=== PATIENT | female | born 1975 | race Caucasian/White ===

== ENCOUNTER 2018-02-15 01:51 | Inpatient (IN) | payer OTHER ==
[~2018-02-15] VITALS: Ht 162.6 cm; Wt 68.0 kg
[~2018-02-15 01:51] MED LIST: ATIVAN0.5 M1 PO; FIBER500 MG PO; LAMICTAL100 M2 PO; LATUDA60 M1 PO; MELATONIN10 M2 PO; PARAGARD T 3801 EACH
[2018-02-15 10:43] LABS: ABSOLUTE BASOPHIL COUNT 0 /CUMM (0.0-0.2); ABSOLUTE EOSINOPHIL COUNT 0 /CUMM (0.0-0.7); ABSOLUTE GRANULOCYTE CT 5.3 /CUMM (1.4-6.5); ABSOLUTE LYMPH COUNT 0.7 /CUMM (1.2-3.4); ABSOLUTE MONOCYTE COUNT 0.4 /CUMM (0.10-0.60); BASOPHIL % 0.5 % (0.0-2.0); EOSINOPHIL % 0.6 % (0-5); GRANULOCYTE % 82.1 % (42.2-75.2); MEAN CORPUSCULAR HGB 30.3 PG (27.0-31.0); MEAN CORPUSCULAR HGB CONC 33.3 G/DL (33.0-37.0); MEAN CORPUSCULAR VOLUME 91.1 FL (81.0-99.0); PLATELET COUNT 268 /CUMM (130-400); RBC DISTRIBUTION WIDTH 13.5 % (11.5-14.5); RED BLOOD CELL CT 4.72 /CUMM (4.20-5.40); WHITE BLOOD CELL COUNT 6.4 /CUMM (4.8-10.8)
--- NOTE | 2018-02-15 15:39 | Operative Report ---
Operative/Inv Procedure Report Surgery Date: 02/15/18 Name of Procedure: 1. Robotic low anterior resection 2. Rigid sigmoidoscopy Pre-Operative Diagnosis: Complicated diverticulitis with history of perforation Post-Operative Diagnosis: Complicated diverticulitis with history of perforation Estimated Blood Loss: scant Surgeon/Lap Winding Machine Operator: Russ Vaughan Jr., DO Anesthesia: general endotracheal tube, block Monitors: Per routine Urine Output: None Drains: None Specimens: Rectosigmoid with stapler noted Complications: None Condition: Good Operative Indication: This is a 42-year-old healthy female I first met which presented to the hospital with severe abdominal pain secondary to perforated diverticulitis. She managed to recover from that that without surgery. Since that time she began having recurrent symptoms. After careful discussion in the office we decided to proceed with surgical resection. Operative/Procedure Note Note: The day before the operation the patient did a bowel prep at home including oral laxatives and oral antibiotics. The day of the procedure she drank 12 ounces of juice 3 hours prior to her scheduled surgery per the ERAS protocol. When she arrived at the hospital she received the ERAS premedications including: Entereg, Neurontin and Tylenol She was taken to the operating room placed in supine position on the operating room table. She underwent induction of general anesthesia placement of endotracheal tube. Next she had bilateral tap blocks performed by the anesthesia departmen. A Simpson catheter was placed. She was converted to lithotomy position with both arms were tucked and the abdomen was prepped and draped in usual fashion. We gained access to the abdominal cavity using a Veress needle technique. The Veress needle was inserted in the midclavicular line just subcostal on the left. The abdomen was insufflated to 15 mmHg and then the robotic ports were placed. The ports were placed in the line between the right lower quadrant and the left side of the xiphoid process. The ports were placed approximately 8 cm apart. #1, 2 and 3 ports were all 8 mm ports and the #4 port was a 12 mm stapler port. A right lower quadrant 8 mm port was also placed. Laparoscopic exploration of the abdominal cavity was performed patient had a very inflamed segment of distal sigmoid inflammation did involve the superior aspect of the rectum. The patient was placed and Trendelenburg right side down and the robot was docked. The rectosigmoid was grasped I incised the peritoneum at the lumbosacral promontory to the right of the rectosigmoid. I entered the posterior rectal avascular space and I took the space down to the mid rectum as I felt the anastomosis needed to be comfortably on the rectum so no inflamed tissue would be left. I worked medially to laterally incised with the iliac vessels and the left ureter. The right lateral stalk and then the left lateral stalk were taken down with vessel sealer to about the mid rectum. Next I skeletonized the inferior mesenteric vascular pedicle. The pedicle was skeletonized distal to the left colic artery and possibly leaving at least one of the sigmoid branches. Once skeletonized the vessels were divided with the robotic vessel sealing device. Next I took down the white line of Toldt all the way back to the proximal descending colon. I did not take the splenic flexure as I had adequate colon length for resection and anastomosis. Next I chose my distal site of transection. Once again I was in the upper third of the rectum. The mesorectum was cleared with a combination of electrocautery and robotic vessel sealing device. Once the rectal wall was completely opposed a robotic RADHA stapler was used to divide the bowel at this level. This was a blue 45 mm EEA stapler. Only one firing was required. The transected end of the colon was grasped with a locking grasper. The pneumoperitoneum was let down. A 4 cm Pfannenstiel incision was made approximately 2 cm above the pubic symphysis. Wound protector was placed through this incision and the bowel was easily extracted through the wound protector. I chose my proximal site of transection above the inflamed sigmoid on the very proximal sigmoid colon about the level junction with the descending colon. The mesentery was cleared here partly with electrocautery and larger bundles of tissue were ligated and divided with 2-0 Vicryl suture. I sharply divided the bowel and the open end was grasped without clamps. The specimen was removed from the field and a handsewn pursestring was performed with 2-0 Prolene. The patient is very petite and her colon was now caliber so I chose a 25 EEA stapler. The anvil was placed into the lumen of the bowel and [place] was tied snugly around the PEG of the anvil. The bowel was reduced back the abdominal cavity the wound protector was And then we reestablished pneumoperitoneum. We inspected for hemostasis which was excellent. The EEA sizers and then the EEA stapler passed transanally. Once the stapler was at the end of the transected Olivas's pouch the spike was advanced. The spike emerged mid staple line just anterior to the staple line. The 2 ends of the stapling device were mated. The stapler was closed completely. We inspected the colon and make sure it was not twisted. The stapler was allowed to settle for 30 seconds was then armed, and fired. The stapler was opened and completely retrieved there were 2 excellent donuts on the stapling device. The pelvis was filled with sterile saline. The bowels gently occluded proximal to the anastomosis . A rigid sigmoidoscopy was performed and there was no air leak at the anastomosis. I could see the anastomosis clearly it was intact and there was no bleeding. There was aspirated. Next we began closure. The Pfannenstiel incision was closed first. First the peritoneum was closed with running 2-0 Vicryl suture. Next the fascia was closed transversely with 0 PDS suture. Subcutaneous was copiously irrigated and the skin was closed with skin matt at this location. All the ports were removed under direct visualization of the laparoscope. All these incisions were closed with subcuticular 4-0 Monocryl and then skin glue. A dry sterile dressing was applied over the Pfannenstiel incision. The patient tolerated the procedure well. The patient was converted back to supine position X been operating room and taken recovery area in good condition. At the end of this operational needle sponges and measurements were accounted for. Findings: Very distal sigmoid diverticulitis with secondary involvement of upper rectum Discharge Disposition: Same Day Admissions
[2018-02-15] MEDS ORDERED: FERROUS SULFAT325 M3 PO (15:40)
--- NOTE | 2018-02-15 15:42 | Admission Core Measures ---
Acute Coronary Syndrome (CM) ACS Core Measures Acute Coronary Syndrome Diagnosis No Congestive Heart Failure (NEW) CHF Core Measures Congestive Heart Failure Diagnosis No Cerebrovascular Accident CVA Core Measures CVA/TIA Diagnosis No Venous Thromboembolism VTE Core Scott (View Protocol) VTE Risk Factors Surgery No Mechanical VTE Prophylaxis d/t N/A MechProphylax Ordered No VTE Pharm Prophylaxis d/t NA PharmProphylax ordered Problem List As ranked by this Provider includes Assessment & Plan 1. Diverticulitis large intestine 2. History of low anterior resection of rectum HOME MEDS Home Med List Ferrous Sulfate 325 MG (65 MG IRON) TABLET 1 TAB PO DAILY LOW IRON (Reported) Lamotrigine (Lamictal) 100 MG TABLET 3 TAB PO QPM MENTAL HEALTH (Reported) Lorazepam (Ativan) 0.5 MG TABLET 1 TAB PO TID PRN ANXIETY (Reported) Lurasidone HCl (Latuda) 60 MG TABLET 1 TAB PO QPM MENTAL HEALTH (Reported) Methylcellulose (Fiber) (Unknown Strength) TABLET (Unknown Dose) PO DAILY GI (Reported) Discontinued Medications Melatonin 10 MG TABLET 2 TAB PO QPM SLEEP (Reported) Discontinued reason: Med no longer needed
--- NOTE | 2018-02-15 15:53 | Surgical Discharge Summary ---
Visit Information Visit Dates Admission Date: 02/15/18 History of Present Illness Chief Complaint: Diverticulitis Medical History Gastrointestinal: diverticulitis, GERD, Gastroparesis, Gastric Polyp Psychiatric: anxiety, depression, PTSD Other Medical Hx: Anorexia Isolation History: Standard Surgical History Pertinent Surgical History: colon resection Review of Systems: as per [facility] Hospital Course Course Attending Physician: Russ Vaughan Jr., DO Primary Care Physician: Patient Has No Primary Care Dr Hospital Course: This is a 42 yo female with a PMHx of anorexia, gastroparesis, gastric polyp, GERD, depression, PTSD, and diverticulitis who presented electively on 02/15/18 for Robotic Low Anterior Resection. Patient tolerated the procedure well. Postoperative course was uncomplicated. Diet was advanced in a stepwise fashion as bowel function returned. She was on an ERAS protocol during her hospital stay. By time of discharge patient was ambulating, voiding, tolerating a regular low residue diet, on PO analgesia, and had full return of bowel function. Plan is for the patient to follow up with Dr. Vaughan within 2 weeks for staple removal and postoperative check. Full details of her hospital course, operative report and diagnostic studies can be found in his electronic chart. Complications: None Allergies: Coded Allergies: lactose (LACTOSE INTOLERANT 02/09/18) Significant Procedures: Robotic Low Anterior Resection Disposition Summary Disposition Principal Diagnosis: Diverticulitis Additional Diagnosis: 1. Anorexia 2. Gastroparesis 3. Gastric Polyp 4. GERD 5. Depression 6. PTSD 7. Diverticulitis Discharge Disposition: home or self care Discharge Instructions General Discharge Information Code Status: Full Code Patient's Diet: Regular Low Residue Patient's Activity: As tolerated Follow-Up Instructions/Appts: Follow up with Dr. Vaughan in 2 weeks for staple removal and postoperative check. Call sooner with any other problems, questions or concerns. Medications at Discharge Discharge Medications: Stop taking the following medications: Melatonin (Melatonin) 10 MG TABLET ORAL Every night Copies To: Russ Vaughan Jr., DO
--- NOTE | 2018-02-15 15:58 | Patient Discharge Instructions ---
Discharge Instructions General Discharge Information You were seen/treated for: Diverticulitis You had these procedures: Robotic Low Anterior Resection Watch for these problems: Redness, swelling, or unusual drainage from incisions. Increased pain, nausea, vomiting, excessive diarrhea, or no bowel movements. Fever >101, chest pain, shortness of breath, or calf pain. Call Surgeon to remove: [place] Do not soak the wound: Yes Daily wet to dry dressings: No No bath, but you may shower: Yes Diet Continue normal diet: Yes Recommended Diet: Low Residue, Regular Activity Full Activity/No Limits: No Activity Self Limited: Yes Pounds, do NOT lift more than: 10 (x 2 weeks) Activity Limited to: Weight bear as tolerated Acute Coronary Syndrome Inclusion Criteria At DC or during hospital stay patient has or had the following: ACS DIAGNOSIS No Discharge Core Measures Meds if any: Prescribed or Continued at Discharge Meds if any: NOT Prescribed or Continued at Discharge Congestive Heart Failure Inclusion Criteria At DC or during hospital stay patient has or had the following: CHF DIAGNOSIS No Discharge Core Measures Meds if any: Prescribed or Continued at Discharge Meds if any: NOT Prescribed or Continued at Discharge Cerebrovascular accident Inclusion Criteria At DC or during hospital stay patient has or had the following: CVA/TIA Diagnosis No Discharge Core Measures Meds if any: Prescribed or Continued at Discharge Meds if any: NOT Prescribed or Continued at Discharge Venous thromboembolism Inclusion Criteria VTE Diagnosis No VTE Type NONE VTE Confirmed by (Test) NONE Discharge Core Measures - Per Current guidelines, there needs to be overlap - treatment for the first 5 days of Warfarin therapy. - If discharged on Warfarin prior to 5 days of - overlap therapy, the patient will need to be - assessed for post discharge needs including - *Post discharge parental anticoagulation - *Warfarin and/or parental anticoagulation education - *Follow up date to check INR post discharge At least 5 days overlap therapy as Inpatient No Meds if any: Prescribed or Continued at Discharge Note: Overlap Therapy is Warfarin and Anticoagulant Meds if any: NOT Prescribed or Continued at Discharge
[2018-02-15 16:50] VITALS: BP 106/76
--- NOTE | 2018-02-15 18:06 | PN- General Surgery ---
Subjective Subjective: PATIENT LYING IN BED WITH COMPLAINTS OF GENERALIZED SORENESS. SHE FEELS HUNGRY Objective Vital Signs and I&Os Vital Signs Date Time Temp Pulse Resp B/P B/P Pulse O2 O2 Flow FiO2 Mean Ox Delivery Rate 02/15 1650 99 Nasal 2.0L Cannula 02/15 1650 97.8 91 18 106/76 99 Nasal 2.0L Cannula Physical Exam: VSS AFEBRILE CHEST-CTA, SYMMETRIC HEART-RRR, WITHOUT MRG ABD -SURGICAL PORTAL SITES CDI DRESSINGS DRY NO BOWEL SOUNDS BILATERAL LOWER EXTREMITES WITHOUT EDEMA Assessment/Plan Assessment/Plan POSTOP CHECK ROBOTIC LAR ERAS PROTOCAL D/C [place] AND IVF IN AM ADVANCE TO FLD STARTED ON CLD TODAY OOB WITH PT LABS PENDING FOR AM Core Measures Venous Thromboembolism VTE Risk Factors Surgery No Mechanical VTE Prophylaxis d/t N/A MechProphylax Ordered No VTE Pharm Prophylaxis d/t NA PharmProphylax ordered
[2018-02-15 22:01] VITALS: BP 129/76
[2018-02-16 06:57] VITALS: BP 102/59
--- NOTE | 2018-02-16 07:35 | PN- General Surgery ---
See Addendum Subjective Subjective: Patient reports minimal pain, which is well controlled. She reports she is tolerating clears without nausea or vomiting. She denies belching. She denies ambulating. She denies passing flatus. She offer no other complaints. Per nursing no overnight events. Objective Vital Signs and I&Os Vital Signs Date Time Temp Pulse Resp B/P B/P Pulse O2 O2 Flow FiO2 Mean Ox Delivery Rate 02/16 0657 98.2 78 18 102/59 98 Nasal 1.0L Cannula 02/16 0000 Nasal 1.0L Cannula 02/15 220 98.0 92 20 129/76 98 Room Air 02/15 2050 Nasal 2.0L Cannula 02/15 165 99 Nasal 2.0L Cannula 02/15 165 97.8 91 18 106/76 99 Nasal 2.0L Cannula Intake & Output 02/16 0800 02/16 0000 02/15 1600 02/15 0800 02/15 0000 02/14 1600 Intake Total 1320 1185 Output Total Balance 1320 1185 Intake, IV 600 225 Intake, Oral 720 960 Number 0 0 Bowel Movements Patient 150 lb Weight Weight Reported by Patient Measurement Method Physical Exam: Gen - resting comfortably nad Cardiac - S1S2 noted Lungs - CTAB Abd - soft, mildly distended, dull to percussion, hypoactive bs, appropriately tender thalia-incisionally, incisions closed with dermaflex with no signs of infection, suprapubic dressing c/d/i - clear yellow urine, 2200 last shift Ext - alps in place, no edema or calf tendeness Assessment/Plan Assessment/Plan 42 F POD 1 s/p robotic LAR secondary to complicated diverticulitis with history of perforation, recovering well Advance to fulls D/c IVF Eras protocol Entereg bid Home meds on board DVT ppx - alps, hsq Wean O2 D/c hsu F/u am labs Encourage IS, ambulation Will d/w Dr. Vaughan Core Measures Venous Thromboembolism VTE Risk Factors Surgery No Mechanical VTE Prophylaxis d/t N/A MechProphylax Ordered No VTE Pharm Prophylaxis d/t NA PharmProphylax ordered
[2018-02-16 08:21] LABS: ABSOLUTE BASOPHIL COUNT 0 /CUMM (0.0-0.2); ABSOLUTE EOSINOPHIL COUNT 0 /CUMM (0.0-0.7); BASOPHIL % 0.1 % (0.0-2.0); EOSINOPHIL % 0 % (0-5)
[2018-02-16 09:00] LABS: ABSOLUTE GRANULOCYTE CT 8.7 /CUMM (1.4-6.5); ABSOLUTE LYMPH COUNT 0.7 /CUMM (1.2-3.4); ABSOLUTE MONOCYTE COUNT 0.9 /CUMM (0.10-0.60); MEAN CORPUSCULAR HGB 30.6 PG (27.0-31.0); MEAN CORPUSCULAR HGB CONC 33.5 G/DL (33.0-37.0); MEAN CORPUSCULAR VOLUME 91.3 FL (81.0-99.0); MEAN PLATELET VOLUME 9.3 FL (7.4-10.4); PLATELET COUNT 215 /CUMM (130-400); RBC DISTRIBUTION WIDTH 13.1 % (11.5-14.5); RED BLOOD CELL CT 3.75 /CUMM (4.20-5.40)
[2018-02-16 09:16] LABS: WHITE BLOOD CELL COUNT 10.3 /CUMM (4.8-10.8)
[2018-02-16 09:17] LABS: HEMATOCRIT 34.3 % (37-47)
[2018-02-16 11:30] VITALS: BP 98/60
[2018-02-16 15:26] VITALS: BP 82/58
[2018-02-16 17:29] VITALS: BP 96/60
[2018-02-16 22:12] VITALS: BP 90/58
[2018-02-17 06:10] VITALS: BP 92/66
[2018-02-17 08:34] LABS: ABSOLUTE BASOPHIL COUNT 0 /CUMM (0.0-0.2); ABSOLUTE EOSINOPHIL COUNT 0.1 /CUMM (0.0-0.7); ABSOLUTE GRANULOCYTE CT 3.8 /CUMM (1.4-6.5); ABSOLUTE LYMPH COUNT 1.1 /CUMM (1.2-3.4); ABSOLUTE MONOCYTE COUNT 0.5 /CUMM (0.10-0.60); BASOPHIL % 0.5 % (0.0-2.0); EOSINOPHIL % 1.6 % (0-5); GRANULOCYTE % 69.4 % (42.2-75.2); HEMATOCRIT 32.1 % (37-47); MEAN CORPUSCULAR HGB 30.4 PG (27.0-31.0); MEAN CORPUSCULAR HGB CONC 33.4 G/DL (33.0-37.0); MEAN CORPUSCULAR VOLUME 91.1 FL (81.0-99.0); MEAN PLATELET VOLUME 8.9 FL (7.4-10.4); PLATELET COUNT 179 /CUMM (130-400); RBC DISTRIBUTION WIDTH 13.5 % (11.5-14.5); RED BLOOD CELL CT 3.53 /CUMM (4.20-5.40); WHITE BLOOD CELL COUNT 5.5 /CUMM (4.8-10.8)
--- NOTE | 2018-02-17 08:53 | PN- General Surgery ---
See Addendum Subjective Subjective: Patient had an uneventful evening course, she feels well, she does have pain in her abdomen getting out of bed and states she cannot get out of bed without assistance. Prior to my arrival she did vomit after drinking V8 and MiraLAX mixture, she believes it is from this as she was not having any nausea or any worsening abdominal pain or distention prior to vomiting. She currently does not feel nauseous Patient passed small amount of flatus and states she had a small bowel movement this morning Objective Vital Signs and I&Os Vital Signs Date Time Temp Pulse Resp B/P B/P Pulse O2 O2 Flow FiO2 Mean Ox Delivery Rate 02/17 0610 98.7 73 20 92/66 95 02/16 2212 98.5 72 18 90/58 96 Room Air 02/16 1729 96/60 02/16 1526 98.9 86 20 82/58 96 Room Air 02/16 1130 98.4 76 18 98/60 95 Room Air Room Air Intake & Output 02/17 1600 02/17 0800 02/17 0000 02/16 1600 02/16 0800 02/16 0000 Intake Total 600 1000 1320 1185 Output Total 052 152 7315 2200 Balance -500 -150 0 -880 1185 Intake, IV 600 225 Intake, Oral 600 1000 720 960 Number 0 0 Bowel Movements Output, Urine 458 885 7762 2200 Patient 150 lb Weight Weight Reported by Patient Measurement Method Physical Exam: Well-developed well-nourished no apparent distress. HEENT: Atraumatic, extraocular motion intact Neck: Supple, no lymphadenopathy Respiratory: No respiratory distress Abdomen: Portal sites clean dry and intact, Dermabond applied, no signs of infection. Suprapubic dressing clean dry and intact. Abdomen is softly distended, mild, positive bowel sounds, appropriate tenderness diffusely lower abdomen. Extremities: No edema, no calf pain Neuro: Alert and oriented x3 Psych: Mood affect normal, normal memory normal judgment. Skin: Warm and dry, no rash on exposed skin Assessment/Plan Assessment/Plan 42 F POD 2 s/p robotic LAR secondary to complicated diverticulitis with history of perforation, recovering well Continue full liquid diet, recommend that patient take only sips of water until lunch due to her vomiting this morning. H&H has stabilized Eras protocol Entereg bid Home meds on board DVT ppx - alps, hsq Encourage IS, ambulation Core Measures Venous Thromboembolism VTE Risk Factors Surgery No Mechanical VTE Prophylaxis d/t N/A MechProphylax Ordered No VTE Pharm Prophylaxis d/t NA PharmProphylax ordered
[2018-02-17 13:48] VITALS: BP 106/68
[2018-02-17 21:37] VITALS: BP 116/78
[2018-02-18 07:16] VITALS: BP 114/72
--- NOTE | 2018-02-18 09:14 | PN- General Surgery ---
Subjective Subjective: pT IN BED, NO COMPLAINTS, NO MORE NAUSEA. HAVING BOWEL MOVEMENTS. VOIDING. AMBULATING. DENEIS CP/SOB, FEVERS, CA Objective Vital Signs and I&Os Vital Signs Date Time Temp Pulse Resp B/P B/P Pulse O2 O2 Flow FiO2 Mean Ox Delivery Rate 02/18 0716 98.0 79 18 114/72 95 02/17 2137 98.2 72 20 116/78 96 02/17 1348 98.0 84 20 106/68 95 Room Air Intake & Output 02/18 1600 02/18 0800 02/18 0000 02/17 1600 02/17 0800 02/17 0000 Intake Total 480 600 Output Total 600 420 500 750 Balance -600 60 -500 -150 Intake, Oral 480 600 Number 1 1 Bowel Movements Output, 120 Emesis Output, Urine 600 300 500 750 Patient 150 lb Weight Physical Exam: GEN- NAD RESP- CLEAR CARDIAC- RRR ABD- FLAT, +BS, APPROPRIATELY TENDER AROIND INCISIONS. WOUNDS CLEAN AND DRY, NO SIGNS OF INFECTION, NO ERYTHEMA OR DRAINAGE. MINH IN PLACE EXT- CALVES SOFT, 2+ DP PULSE BILATERALLY Current Medications: Current Medications Sig/Jia Start time Last Medication Dose Route Stop Time Status Admin Acetaminophen 1,000 MG Q6 02/16 1200 AC 02/18 PO 06 Alvimopan 12 MG BID 02/15 2100 DC 02/18 PO 08 Diphenhydramine HCl 50 MG Q6P PRN 02/15 1600 AC IV Docusate Sodium 100 MG BID 02/15 2100 AC 02/18 PO 0810 Ferrous Sulfate 325 MG DAILY 02/16 09 AC 02/18 PO 08 Gabapentin 200 MG BID 02/15 2100 AC 02/18 PO 0810 Heparin Sodium 5,000 UNIT Q8H 02/16 0130 AC 02/18 (Porcine) SC 0806 Ketorolac 15 MG Q6 02/17 1200 AC 02/18 Tromethamine IV 02/18 180 0629 Lamotrigine 300 MG DAILY 02/16 09 AC 02/18 PO 08 Lorazepam 1 MG AT BEDTIME 02/16 2100 AC 02/17 PO 2041 Lorazepam 0.5 MG Q8P PRN 02/15 1615 AC 02/17 PO 02/22 1614 0836 Lurasidone HCl 60 MG DAILY 02/16 09 AC 02/18 PO 08 Melatonin 5 MG AT BEDTIME 02/16 2100 AC 02/17 PO 2042 Morphine Sulfate 2 MG Q3P PRN 02/15 1600 AC IV Morphine Sulfate 4 MG Q3P PRN 02/15 1600 AC IV Ondansetron HCl 4 MG Q6P PRN 02/15 161 AC 02/17 IV 1124 Oxycodone HCl 5 MG Q4-6 PRN PRN 02/15 161 AC 02/17 PO 112 Oxycodone HCl 10 MG Q4-6 PRN PRN 02/15 161 AC 02/16 PO 2021 Pantoprazole Sodium 40 MG DAILY 02/15 160 AC 02/18 IV 0804 Polyethylene Glycol 17 GM DAILY 02/16 0900 DC 02/17 PO 0814 Psyllium Hydrophilic 1 PAC BID 02/15 2100 DC 02/17 Mucilloid PO 813 Simethicone 80 MG TID 02/15 2100 AC 02/18 PO 0813 Results Last 48 Hours of Labs: Laboratory Tests 02/17 0710 Hematology CBC w Diff NO MAN DIFF REQ WBC (4.8 - 10.8 /CUMM) 5.5 RBC (4.20 - 5.40 /CUMM) 3.53 L Hgb (12.0 - 16.0 G/DL) 10.7 L Hct (37 - 47 %) 32.1 L MCV (81.0 - 99.0 FL) 91.1 MCH (27.0 - 31.0 PG) 30.4 MCHC (33.0 - 37.0 G/DL) 33.4 RDW (11.5 - 14.5 %) 13.5 Plt Count (130 - 400 /CUMM) 179 MPV (7.4 - 10.4 FL) 8.9 Gran % (42.2 - 75.2 %) 69.4 Lymphocytes % (20.5 - 51.1 %) 19.6 L Monocytes % (1.7 - 9.3 %) 8.9 Eosinophils % (0 - 5 %) 1.6 Basophils % (0.0 - 2.0 %) 0.5 Absolute Granulocytes (1.4 - 6.5 /CUMM) 3.8 Absolute Lymphocytes (1.2 - 3.4 /CUMM) 1.1 L Absolute Monocytes (0.10 - 0.60 /CUMM) 0.5 Absolute Eosinophils (0.0 - 0.7 /CUMM) 0.1 Absolute Basophils (0.0 - 0.2 /CUMM) 0 Assessment/Plan Assessment/Plan 42YO f sp ROBOTIC LAR POD3. STABLE DC ENTEREG- HAVING BMS ADVBANCE TO LOW RESIDUE DIET PAIN MANAGEMENT CONT ERAS PROTOCOL DVT PPX- ENCOURAGE AMBULATION, HSQ DAILY DRY DRESSING CHANGE DC PLANING- LIKELY HOME THIS AFTERNOON LONG SHE TOLERATES DIET FU WITH DR TALAMANTES IN 10 DAYS DW ATTENDING AND HE AGREES Core Measures Venous Thromboembolism VTE Risk Factors Surgery No Mechanical VTE Prophylaxis d/t N/A MechProphylax Ordered No VTE Pharm Prophylaxis d/t NA PharmProphylax ordered
[2018-02-18] MEDS ORDERED: ROXICODONE5 M1 PO (09:24)
[2018-02-18] MEDS ORDERED: TYLENOL EXTRA500 M2 PO (09:24)
== END 2018-02-18 14:15 | DRG 330 ==
LOC: SDA 01:51 → ENRESERV 15:52 → ENTRNSPT 16:30 → EDTRNSPT 16:37 → EDTRNSPTSTS 16:37 → 2NB 16:54 → CMPTRNSPT 16:59 → ENPENDDIS 02-18 12:01 → ENTRNSPT 02-18 14:05 → EDTRNSPT 02-18 14:10 → EDTRNSPTSTS 02-18 14:10 → 2NB 02-18 14:15 → CMPTRNSPT 02-18 14:29
PROVIDERS: Colon & Rectal Surgery; Physician Assistant Surgical
PROC: 8E0W4CZ Robotic Assisted Procedure of Trunk Region, Percutaneous Endoscopic Approach (ICD-10-PCS; principal; 2018-02-15)
PROC: 0DJD8ZZ Inspection of Lower Intestinal Tract, Via Natural or Artificial Opening Endoscopic (ICD-10-PCS; principal; 2018-02-15)
PROC: 0D1 Gastrointestinal System, Bypass (ICD-10-PCS; principal; 2018-02-15)
DX: K57.20 Diverticulitis of large intestine with perforation and abscess without bleeding (principal); F41.9 Anxiety disorder, unspecified; F32.9 Major depressive disorder, single episode, unspecified; K21.9 Gastro-esophageal reflux disease without esophagitis; F43.10 Post-traumatic stress disorder, unspecified; K31.84 Gastroparesis; R63.0 Anorexia; Z68.25 Body mass index [BMI] 25.0-25.9, adult
CPT/HCPCS: 2NBP; 36415; 36592; 81025; 82436; 87086; J0690; J1644; J3490; J7120